=== PATIENT | female | born 1960 | race Caucasian/White ===

== ENCOUNTER 2017-11-23 09:35 | Day surgery (SDC) | payer OTHER ==
[2017-11-23 09:59] VITALS: BMI 27.9
[2017-11-23 10:14] VITALS: O2SAT 100
[2017-11-23] MEDS ORDERED: Lactated Ringer's 1,000 ML IV ONE (11:30)
[2017-11-23 14:02] VITALS: TEMP 98
[2017-11-23 14:09] VITALS: BP 138/72; PULSE 70; RESP 18
== END 2017-11-23 13:00 | disposition home or self-care (01) ==
LOC: C.ENDO 09:35
PROVIDERS: ATTEND Internal Medicine Gastroenterology
DX: K57.92 Diverticulitis of intestine, part unspecified, without perforation or abscess without bleeding (principal); K64.8 Other hemorrhoids
CPT/HCPCS: 45378; J7120